=== PATIENT | male | born 1970 | race Caucasian/White ===

== ENCOUNTER 2024-09-18 18:31 | Emergency (ER) | payer OTHER, SELFPAY | END 2024-09-18 19:03 | LOC: EEVIPCON 18:31 → BURERS 18:31 | DX: F10.129 Alcohol abuse with intoxication, unspecified (principal); F17.210 Nicotine dependence, cigarettes, uncomplicated; F17.220 Nicotine dependence, chewing tobacco, uncomplicated; V58.0XXA Driver of pick-up truck or van injured in noncollision transport accident in nontraffic accident, initial encounter | CPT/HCPCS: 99284 ==